=== PATIENT | male | born 1965 | race Caucasian/White ===

== ENCOUNTER 2016-11-01 12:45 | Day surgery (SDC) | payer MEDICARE, BC ==
[~2016-11-01 12:45] MED LIST: CENTTAB; CHOL4 PO; DIVA250ER PO; DIVA500 PO
[2016-11-01 13:05] VITALS: BP 144/83; PULSE 80; RESP 20; TEMP 97.7; O2SAT 96
--- NOTE | 2016-11-01 16:38 | RADRPT ---
EXAM DATE/TIME: 11/01/2016 00:00 [facility] COMPARISON : INDICATIONS : Consult for transarterial ablasion of liver mets OBJECTIVE: Temperature: 97.7 Heart Rate: 80 Blood Pressure: 144/83 Respiratory: 20 Oximetry: 96 PNEUMONIA VACCINE: NO HISTORY OF PRESENT ILLNESS: The patient is a 51-year-old with known colon cancer metastatic to the liver. The patient's solitary met in the left lobe of the liver has progressed from 3.5 cm to 4.5 cm over the last 6 months in spit e of maximal medical therapy. The patient presents for evaluation for treatment with radioactive micr ospheres. PAST MEDICAL HISTORY : 1. Carcinoma, colon. 2. Diabetes mellitus 2. 3. Seizures. 4. Alzheimer's. 5. Bipolar 6. Intellectual Disability 7. Acinetobacter PAST SURGICAL HISTORY : 1. Reversal colostomy 2. Colon Resection 3. Port Placement SOCIAL HISTORY : No alcohol use. No alcohol use. Tobacco;none. ALLERGIES: 1. Sulfa MEDICATIONS: 1. Metformin 500 mg q.d. 2. Abilify 10 mg q.d. 3. Depakote 500 mg q.d. 4. Divalproex ER 750 mg q.d. PHYSICAL EXAMINATION: Cardiovascular: Regular rate rhythm. Lungs: Clear to auscultation. Abdomen: Soft, nontender with a large scar from the patient's previous surgery. Pulses: Palpable dorsalis pedis and posterior tibial on the right. There is a palpable dorsalis pedis on the left with a faint post tibial. Groin pulses are symmetric and 2+ bilaterally. IMAGING STUDIES: The patient's CT imaging performed at [address] [place] [address] was reviewed. These confirmed enlarg ement of the patient's lesion in the left lobe of the liver. ASSESSMENT: 51-year-old with metastatic colon carcinoma to the liver. The patient is an excellent candidate for m icrosphere radioablation. The risks, benefits and potential competitions of the procedure were discussed in detail. The patient was briefly on radiation safety procedures post procedure. PLAN: The patient will be scheduled for preoperative mapping and nuclear evaluation. TIME SPENT: 30 minutes Pawan Shipley MD on November 01, 2016 at 16:33 Board Certified Radiologist. This report was verified electronically.
== END 2016-11-01 13:54 | disposition home or self-care (01) ==
LOC: HROP 12:45 → HRIP 12:48 → HROP 13:54
PROVIDERS: ATTEND Internal Medicine Hematology & Oncology
DX: C78.7 Secondary malignant neoplasm of liver and intrahepatic bile duct (principal); C18.9 Malignant neoplasm of colon, unspecified

== ENCOUNTER → 2017-01-20 | Outpatient (CLI) | payer MEDICARE, BC ==
[~2017-01-20] MED LIST changes: +DIVA250T3 PO; +DIVA500T PO; +METF500T PO; +METF850T PO; +MULT1TAB46; +ONDA1TAB16; +ONDA1TAB16 PO; +OXYC-392 PO; +QUES4POW2 PO; +XELO150T PO
--- NOTE | 2017-01-21 13:00 | RADRPT ---
EXAM DATE/TIME: 01/20/2017 14:02 [facility] COMPARISON : INDICATIONS : Colon cancer with metastic disease to liver. PNEUMONIA VACCINE: HISTORY OF PRESENT ILLNESS: The patient is a 52-year-old who has known metastatic colon cancer to the liver. The patient was init ially sent for evaluation to see if he is a candidate for ytrium embolization however, the patient santo d received intensive external beam radiation therapy to the liver and as such was not a candidate. We are reviewing the patient's records to see if he is a candidate for chemoembolization. PAST MEDICAL HISTORY : 1. Carcinomoa colon 2. Diabetes mellitus 2. 3. Seizures. 4. Alzheimer's. 5. Bipolar 6. Acinetobactor PAST SURGICAL HISTORY : 1. Revision colostomy 2. Colon resection 3. Port placement SOCIAL HISTORY : No alcohol use. ALLERGIES: 1. Sulfa MEDICATIONS: 1. Metformin 500 mg q.d. 2. Abilify 10 mg q.d. 3. Depakote 500 mg q.d. 4. Divalproex ER 750 mg q.d IMAGING STUDIES: The patient's outside CT imaging was reviewed. ASSESSMENT: I see no contraindication to chemoembolization. PLAN: Patient will be scheduled for chemoembolization of the liver. Pawan Shipley MD on January 21, 2017 at 12:56 Board Certified Radiologist. This report was verified electronically.
== END ==
LOC: HRAD 10:44
PROVIDERS: ATTEND Internal Medicine Hematology & Oncology
DX: C18.9 Malignant neoplasm of colon, unspecified (principal); C78.7 Secondary malignant neoplasm of liver and intrahepatic bile duct

== ENCOUNTER 2017-02-16 07:29 | Observation (INO) | payer MEDICARE, BC ==
[2017-02-16] VITALS (9 sets, daily range): BP systolic 134–151; BP diastolic 74–94; PULSE 65–82; RESP 16–20; TEMP 95.8–97.4; O2SAT 95–99
[~2017-02-16] VITALS: Ht 180.3 cm; Wt 113.6 kg
[~2017-02-16 07:29] MED LIST changes: -DIVA250T3 PO; -DIVA500T PO; -METF500T PO; -METF850T PO; -MULT1TAB46; -ONDA1TAB16; -ONDA1TAB16 PO; -OXYC-392 PO; -QUES4POW2 PO; -XELO150T PO
[2017-02-16] MEDS ORDERED: DIVA500T PO (09:20)
[2017-02-16] MEDS ORDERED: XELO150T PO (09:20)
[2017-02-16] MEDS ORDERED: QUES4POW2 PO (09:20)
[2017-02-16] MEDS ORDERED: MULT1TAB46 (09:20)
[2017-02-16] MEDS ORDERED: DIVA250T3 PO (09:20)
[2017-02-16] MEDS ORDERED: ONDA1TAB16 (09:20)
[2017-02-16] MEDS ORDERED: METF850T PO (09:20)
[2017-02-16] MEDS ORDERED: METF500T PO (09:20)
[2017-02-16] MEDS ORDERED: SODIUM CHLOR 0.9% 1000 ML INJ 1,000 ML IV SCH (09:30)
[2017-02-16] MEDS ORDERED: SODIUM CHLORIDE 0.9% FLUSH 10 ML FLUSH IV FLUSH PRN ×2 (09:30→14:15)
[2017-02-16 14:13] LABS: PROTHROMBIN TIME - PATIENT 11.3 SEC (9.8-11.6)
[2017-02-16] MEDS ORDERED: NALOXONE HCL 0.4 MG/ML AMP IV PRN (14:15)
[2017-02-16] MEDS ORDERED: ACETAMINOPHEN 325 MG TAB PO PRN ×2 (14:15)
--- NOTE | 2017-02-16 14:16 | HHI.HP ---
[facility] Humberto Ryan MD Admission Diagnosis Diagnoses: Chief Complaint: Elective procedure Travel History International Travel<30 Days: No Contact w/Intl Traveler <30 Da: No Traveled to Known Affected Are: No History of Present Illness The patient is a 52-year-old male with a past medical history of colorectal adenocarcinoma with liver metastasis who is presenting to the hospital for elective chemoembolization per interventional radiology. The patient says he is being treated by his oncologist who he saw last week. He says that since the diagnosis of the cancer he has gone from 280 pounds to 250 pounds. He has gone through several cycles of chemoradiation and is currently on palliative chemotherapy. The patient denies any shortness of breath, fevers, constipation , diarrhea, pain on urination and denies any new rashes or skin lesions. He is living independently at this time and he denies any chronic pain. He was seen in the preprocedure room and was about to go for the embolization. He had no acute complaints. Discussed with nurse at the bedside. Review of Systems Except as stated in HPI: all other systems reviewed are Neg Past Family Social History Past Medical History Colorectal adenocarcinoma with liver mets DM Adjustment disorder Cutaneous candidiasis Past Surgical History Colostomy Allergies: Coded Allergies: Sulfa (Verified Allergy, Severe, RASH, 02/16/17) Uncoded Allergies: NYSTATIN TRIAM CINELONE CREAM (Adverse Reaction, Severe, BURNED SKIN BADLY , 06/17/13) Active Ordered Medications Current Medications Medications (Trade) Dose Ordered Sig/Denisha Route Start Time Stop Time Status Last Admin Doxorubicin HCl 50 mg 50 mg ONCE ONCE OTHER 02/16/17 15:00 02/16/17 15:01 (NS 1000 ml Inj) 1,000 ml @ 100 mls/hr Q10H IV 02/16/17 09:30 02/16/17 19:29 (Heparin Central Flush) 500 units UNSCH PRN IV FLUSH 02/16/17 09:30 (NS Flush) 5 ml UNSCH PRN IV FLUSH 02/16/17 09:30 (Heparin Central Flush) 250 units UNSCH PRN IV FLUSH 02/16/17 09:30 Family History Colon cancer Social History The patient does not smoke or drink. He lives by himself. Physical Exam Vital Signs Vital Signs Date Time Temp Pulse Resp B/P Pulse Ox O2 Delivery O2 Flow Rate FiO2 02/16/17 09:00 96 Room Air 02/16/17 07:57 97.4 76 20 135/85 96 Physical Exam GENERAL: This is a well-nourished, well-developed patient, in no apparent distress. SKIN: No rashes, ecchymoses or lesions. Cool and dry. HEAD: Atraumatic. Normocephalic. No temporal or scalp tenderness. EYES: Pupils equal round and reactive. Extraocular motions intact. No scleral icterus. No injection or drainage. ENT: Nose without bleeding, purulent drainage or septal hematoma. Throat without erythema, tonsillar hypertrophy or exudate. Uvula midline. Airway patent. NECK: Trachea midline. No JVD or lymphadenopathy. Supple, nontender, no meningeal signs. CARDIOVASCULAR: Regular rate and rhythm without murmurs, gallops, or rubs. RESPIRATORY: Clear to auscultation. Breath sounds equal bilaterally. No wheezes , rales, or rhonchi. GASTROINTESTINAL: Abdomen soft, non-tender, nondistended. No hepato-splenomegaly , or palpable masses. No guarding. MUSCULOSKELETAL: Extremities without clubbing, cyanosis, or edema. No joint tenderness, effusion, or edema noted. NEUROLOGICAL: Awake and alert. Cranial nerves II through XII intact. Motor and sensory grossly within normal limits. Five out of 5 muscle strength in all muscle groups. Normal speech. PSYCH: Mood and affect appropriate. Assessment and Plan Assessment and Plan Transarterial chemoembolization Recommended by his oncologist for progressive liver lesion. Interventional radiology planning to do procedure 02/16/17. The patient has no acute complaints at this time. - Continue with chemoembolization. - obtain CMP, CBC. Follow labs in AM. - Outpatient follow-up with oncology. - Pain control and antiemetics as needed. Colorectal carcinoma With liver metastasis. Currently receiving palliative chemotherapy. - Follow up with oncology as an outpatient. Diabetes On metformin as an outpatient. - Hold metformin and place on insulin sliding scale. - Diabetic diet following procedure. Mood disorder On Depakote. Mood stable at this time. - continue home meds. PPx: SCDs Discussed Condition With Pt, nurse. Toni Brice DO Feb 16, 2017 14:16
[2017-02-16] MEDS ORDERED: fentaNYL CITRATE 250 MCG/5 ML AMP ONE (14:36)
[2017-02-16] MEDS ORDERED: MIDAZOLAM HCL 5 MG/5 ML VIAL ONE (14:36)
[2017-02-16] MEDS ORDERED: DOXOrubicin HCL 10 MG/5 ML INJ OTHER ONE (15:00)
[2017-02-16] MEDS ORDERED: ceFAZolin 2 GM PREMIX 50 ML ONE (15:45)
--- NOTE | 2017-02-16 15:57 | PD.RAD ---
Post Procedure Progress Note Pre Procedure Diagnosis: (1) Colon cancer (2) Metastatic colon cancer to liver Post Procedure Diagnosis: (1) Metastatic colon cancer to liver (2) Colon cancer Procedure Date: Feb 16, 2017 Supervising Radiologist: Pawan hSipley Anesthesia: Local, Conscious Sedation Plan of Activity Patient to Unit: ROPU Patient Condition: Good Additional Comments: Patient post chemo embolization. The left hepatic and middle hepatic were embolized with DC beads Pt. tolerated the procedure well. Full dictated report to follow See PACS Report for procedural detail/treatment Pawan Shipley MD Feb 16, 2017 15:57
[2017-02-16] MEDS ORDERED: IODIXANOL 320 MG/ML 50 ML VIAL (for RAD SPEC) I-ARTERIAL ONE (16:09)
--- NOTE | 2017-02-16 17:01 | RADRPT ---
EXAM DATE/TIME: 02/16/2017 14:20 [facility] COMPARISON: ANGIOGRAM, HEPATIC ARTERY, February 16, 2017, 0:00. INDICATIONS : Patient with a history of metastatic colorectal cancer to the liver. MEDICAL HISTORY : Bipolar disorder Cutaneous candidiasis Episodic confusion Intellectual disability Previous radiation therapy Rectal cancer with liver metastasis in 2010 SURGICAL HISTORY : Diverting colostomy Port placement Colonoscopy ENCOUNTER: Initial ACUITY: > 1 year PAIN SCORE: 0/10 FLUORO TIME: 12.8 minutes IMAGE SERIES: 11 ACCESS SITE: Right Femoral artery SEDATION TIME: 60 minutes CONTRAST: 1.) 70 cc Visipaque (iodixanol) MEDICATION(S): 1.) 5 mg midazolam (Versed) IV 2.) 250 mcg fentanyl (Sublimaze) IV DEVICE(S): 1.) Right hepatic artery 100-300 LC beads 2.) Right common femoral artery 6FR Angio-Seal PROCEDURE : 1. Ultrasound-guided puncture of the access site. 2. Conscious sedation with continuous EKG and oximetry monitoring. 3. Angiography of the celiac axis 4. Selective angiography of the left hepatic, right hepatic and middle hepatic arteries. 5. Doxorubicin coated bead embolization. The risks, benefits and alternatives to the procedure were explained and verbal and written consent w as obtained. The site was prepped in sterile fashion. Full sterile technique was used, including ca p, mask, sterile gloves and gown and a large sterile sheet. Hand hygiene and 2% chlorhexidine and/or betadine/alcohol prep was utilized per protocol for cutaneous antisepsis. The skin and subcutaneous tissues were infiltrated with local anesthetic solution. With ultrasound and fluoroscopic guidance the right common femoral artery was punctured and a vascula r sheath was placed. A 4 British short catheter and 0.035 Glidewire were advanced into the abdominal aorta. The celiac axis was easily selected. The glide wire was advanced out into the right hepatic artery. The hook cathete r was exchanged for a 4 British glide catheter. Multiple angiographic runs of the liver were performed . Results: Evaluation of the angiographic runs demonstrated neovascularity involving the central portion of the liver with arterial feeders from both the right and left lobe. Primary flow was via the left hepatic and middle hepatic arteries. There was some degree of flow from the right hepatic circulation as well . A renegade hi flow catheter was advanced through the glide catheter. The middle hepatic artery was se lected. Approximately 1.5 cc of embolic beads were administered into the middle hepatic. The catheter was pulled back. The left hepatic was easily selected again, approximately 1.5 cc of doxorubicin coa linda beads were administered without difficulty. Completion angiography was performed. This demonstrated stasis of flow within the left hepatic and mi ddle hepatic arteries. There was a significant decrease in flow to the tumor bed itself. There is how ever some feeding from the right hepatic. The patient's right groin was closed with an Angio-Seal closure device. Conscious sedation was performed with the prescribed dosages and duration as above in the presence of an independent trained radiology nurse to assist in the monitoring of the patient. EKG and oximetry remained stable throughout the procedure. CONCLUSION: 1. Uncomplicated chemoembolization of the left hepatic and middle hepatic circulation with doxorubici n coated beads. The patient does have some flow to the tumor bed as well from a branch off the right hepatic. We will have the patient return in approximately 2 months for embolization of the right hepa tic circulation. 2. The patient tolerated the procedure well. There was no immediate post procedure complication. Pawan Shipley MD on February 16, 2017 at 16:50 Board Certified Radiologist. This report was verified electronically.
[2017-02-16] MEDS: INSULIN ASPART SUPPLEMENTAL SCALE SQ SCH ×2 (18:00→20:48)
[2017-02-16] MEDS: DOCUSATE SODIUM 50 MG/SENNA 8.6 MG TAB PO SCH (20:49)
[2017-02-16] MEDS: SODIUM CHLORIDE 0.9% FLUSH 10 ML FLUSH IV FLUSH SCH (20:50)
[2017-02-16] MEDS ORDERED: DIVALPROEX SODIUM E.R. 250 MG TAB PO SCH (21:00)
[2017-02-16] MEDS: ONDANSETRON HCL 4 MG/2 ML VIAL IVP PRN (21:54)
[2017-02-17] VITALS: BP 142/68; PULSE 82; RESP 18; TEMP 96; O2SAT 98
[2017-02-17 04:00] VITALS: BP 142/83; PULSE 88; RESP 18; TEMP 97.2; O2SAT 97
[2017-02-17 04:01] LABS: MEAN CELL VOLUME 104.4 FL (80.0-100.0); MEAN CORPUSCULAR HEMOGLOBIN 36.2 PG (27.0-34.0); MEAN CORPUSCULAR HGB CONC 34.7 % (32.0-36.0); PLATELET COUNT 175 TH/MM3 (150-450); RED CELL DISTRIBUTION WIDTH 15.6 % (11.6-17.2); REVIEW FLAG FINAL; WHITE BLOOD COUNT 6.9 TH/MM3 (4.0-11.0)
[2017-02-17 04:42] LABS: ALKALINE PHOSPHATASE 75 U/L (45-117); ALT (GPT) 33 U/L (12-78); ANION GAP 6 MEQ/L (5-15); AST (GOT) 52 U/L (15-37); BICARBONATE 31.7 MEQ/L (21.0-32.0); BLOOD UREA NITROGEN 5 MG/DL (7-18); CHLORIDE 100 MEQ/L (98-107); GLOMERULAR FILTRATION RATE 100 ML/MIN (>89); MAGNESIUM 2.4 MG/DL (1.5-2.5); SODIUM (NA) 138 MEQ/L (136-145); TOTAL BILIRUBIN ADULT 1.4 MG/DL (0.2-1.0)
[2017-02-17] MEDS: INSULIN ASPART SUPPLEMENTAL SCALE SQ SCH (06:56)
[2017-02-17 08:00] VITALS: BP 145/82; PULSE 82; RESP 20; TEMP 96.5; O2SAT 100
[2017-02-17] MEDS: DOCUSATE SODIUM 50 MG/SENNA 8.6 MG TAB PO SCH (08:26)
[2017-02-17] MEDS: SODIUM CHLORIDE 0.9% FLUSH 10 ML FLUSH IV FLUSH SCH (08:26)
[2017-02-17] MEDS ORDERED: CHOLESTYRAMINE 4 GM PACKET PO SCH (09:00)
[2017-02-17] MEDS ORDERED: DIVALPROEX DR 500 MG TABEC PO SCH (09:00)
[2017-02-17] MEDS: ONDANSETRON HCL 4 MG/2 ML VIAL IVP PRN ×2 (10:01→15:20)
[2017-02-17 12:00] VITALS: BP 120/69; PULSE 82; RESP 20; TEMP 97.5; O2SAT 95
[2017-02-17] MEDS ORDERED: ONDA1TAB16 PO (15:29)
[2017-02-17] MEDS ORDERED: OXYC-392 PO (15:29)
--- NOTE | 2017-02-17 15:30 | HHI.DCPOC ---
Discharge Care Plan Diagnosis: (1) Metastatic colon cancer to liver Goals to Promote Your Health * To prevent worsening of your condition and complications * To maintain your health at the optimal level Directions to Meet Your Goals Take your medications as prescribed Follow your dietary instruction Follow activity as directed Keep your appointments as scheduled Take your immunizations and boosters as scheduled If your symptoms worsen call your PCP, if no PCP go to Urgent Care Center or Emergency Room Smoking is Dangerous to Your Health. Avoid second hand smoke Call the 24-hour hour crisis hotline for domestic abuse at Toni Brice DO Feb 17, 2017 15:30
--- NOTE | 2017-02-17 15:37 | HHI.PR ---
Subjective Remarks The pt was dressed and waiting to go home. He had no acute complaints. He said his sister will be picking him up. He requested additional nausea and pain pills. Discussed with nursing at the bedside. Objective Vitals Vital Signs Date Time Temp Pulse Resp B/P Pulse Ox O2 Delivery O2 Flow Rate FiO2 02/17/17 12:00 97.5 82 20 120/69 95 02/17/17 08:00 96.5 82 20 145/82 100 02/17/17 04:00 97.2 88 18 142/83 97 02/17/17 00:00 96.0 82 18 142/68 98 02/16/17 20:00 96.4 76 18 138/74 97 02/16/17 20:00 96.2 82 18 142/94 97 02/16/17 18:19 95.8 70 18 151/83 99 02/16/17 17:45 73 16 146/94 97 02/16/17 17:15 75 18 139/79 97 02/16/17 16:45 65 16 138/83 97 02/16/17 16:30 74 16 134/83 97 02/16/17 16:15 73 18 136/75 97 02/16/17 16:00 97.3 76 18 149/91 95 I/O 02/16/17 02/16/17 02/16/17 02/17/17 02/17/17 02/17/17 07:00 15:00 23:00 07:00 15:00 23:00 Intake Total 480 ml Output Total 150 ml Balance -150 ml 480 ml Intake Oral 480 ml Output Urine Total 150 ml # Voids 2 Result Diagram: 02/17/17 0328 02/17/17 0328 Imaging Last Impressions Embolization, Transcatheter 02/16/17 0000 Signed Impressions: Service Date/Time: Thursday, February 16, 2017 14:20 - CONCLUSION: 1. Uncomplicated chemoembolization of the left hepatic and middle hepatic circulation with doxorubicin coated beads. The patient does have some flow to the tumor bed as well from a branch off the right hepatic. We will have the patient return in approximately 2 months for embolization of the right hepatic circulation. 2. The patient tolerated the procedure well. There was no immediate post procedure complication. Pawan Shipley MD Objective Remarks GENERAL: This is a well-nourished, well-developed patient, in no apparent distress. SKIN: No rashes, ecchymoses or lesions. Cool and dry. HEAD: Atraumatic. Normocephalic. No temporal or scalp tenderness. EYES: Pupils equal round and reactive. Extraocular motions intact. No scleral icterus. No injection or drainage. ENT: Nose without bleeding, purulent drainage or septal hematoma. Throat without erythema, tonsillar hypertrophy or exudate. Uvula midline. Airway patent. NECK: Trachea midline. No JVD or lymphadenopathy. Supple, nontender, no meningeal signs. CARDIOVASCULAR: Regular rate and rhythm without murmurs, gallops, or rubs. RESPIRATORY: Clear to auscultation. Breath sounds equal bilaterally. No wheezes , rales, or rhonchi. GASTROINTESTINAL: Abdomen soft, non-tender, nondistended. No hepato-splenomegaly , or palpable masses. No guarding. MUSCULOSKELETAL: Extremities without clubbing, cyanosis, or edema. No joint tenderness, effusion, or edema noted. Right groin procedure site is nontender and without hematoma. NEUROLOGICAL: Awake and alert. Cranial nerves II through XII intact. Motor and sensory grossly within normal limits. Five out of 5 muscle strength in all muscle groups. Normal speech. PSYCH: Mood and affect appropriate. Procedures Chemoembolization Medications and IVs Current Medications Medications (Trade) Dose Ordered Sig/Denisha Route Start Time Stop Time Status Last Admin (Heparin Central Flush) 500 units UNSCH PRN IV FLUSH 02/16/17 09:30 (NS Flush) 5 ml UNSCH PRN IV FLUSH 02/16/17 09:30 (Heparin Central Flush) 250 units UNSCH PRN IV FLUSH 02/16/17 09:30 (Questran 4 Gm Pkt) 4 gm DAILY PO 02/17/17 09:00 02/17/17 08:26 (Depakote Er) 750 mg HS PO 02/16/17 21:00 02/16/17 20:49 (Depakote Dr) 500 mg DAILY PO 02/17/17 09:00 02/17/17 08:26 (NS Flush) 2 ml UNSCH PRN IV FLUSH 02/16/17 14:15 (NS Flush) 2 ml BID IV FLUSH 02/16/17 21:00 02/17/17 08:26 (Tylenol) 650 mg Q4H PRN PO 02/16/17 14:15 (Zofran Inj) 4 mg Q6H PRN IVP 02/16/17 14:15 02/17/17 10:01 (Tylenol) 650 mg Q6H PRN PO 02/16/17 14:15 (Roxicodone) 10 mg Q4H PRN PO 02/16/17 14:15 (Roxicodone) 5 mg Q4H PRN PO 02/16/17 14:15 (Narcan Inj) 0.4 mg UNSCH PRN IV 02/16/17 14:15 (Leana-Colace) 1 tab BID PO 02/16/17 21:00 02/17/17 08:26 A/P Assessment and Plan Transarterial chemoembolization Recommended by his oncologist for progressive liver lesion. Interventional radiology performed the procedure 02/16/17: Uncomplicated chemoembolization of the left hepatic and middle hepatic circulation with doxorubicin coated beads; The patient does have some flow to the tumor bed as well from a branch off the right hepatic; We will have the patient return in approximately 2 months for embolization of the right hepatic circulation. - Outpatient follow-up with oncology. - Pain control and antiemetics as needed. Colorectal carcinoma With liver metastasis. Currently receiving palliative chemotherapy. - Follow up with oncology as an outpatient. Will need further chemoembolization in 2 months. Diabetes On metformin as an outpatient. - Hold metformin and place on insulin sliding scale. Resume home meds upon discharge. Mood disorder On Depakote. Mood stable at this time. - continue home meds. PPx: SCDs Discharge Planning D/c home Toni Brice DO Feb 17, 2017 15:37
== END 2017-02-17 16:35 | disposition home or self-care (01) ==
LOC: HROP 07:29 → HRIP 07:29 → HSDI 14:09 → HROP 14:09 → HOCB 18:00
PROVIDERS: ADMIT Hospitalist; ATTEND Hospitalist
DX: C78.7 Secondary malignant neoplasm of liver and intrahepatic bile duct (principal); C19 Malignant neoplasm of rectosigmoid junction; E11.9 Type 2 diabetes mellitus without complications; F39 Unspecified mood [affective] disorder; F31.9 Bipolar disorder, unspecified; Z93.3 Colostomy status; Z88.2 Allergy status to sulfonamides; Z88.8 Allergy status to other drugs, medicaments and biological substances; Z79.84 Long term (current) use of oral hypoglycemic drugs
CPT/HCPCS: 36247; 36248; 37243; 75726; 75774; 76937; 80053; 82948; 83735; 85027; 85610; 96420; 99152; 99153; C1760; C1769; C1884; C1887; C1894; G0269; G0378; J0690; J2250; J2405; J3010; J7030; J9000; Q9967

== ENCOUNTER 2017-02-23 14:09 | Day surgery (SDC) | payer MEDICARE, BC ==
[~2017-02-23 14:09] MED LIST changes: -CENTTAB; -CHOL4 PO; -DIVA500 PO; +DIVA500T PO; +METF850T PO; +MULT1TAB46; +ONDA1TAB16 PO; +OXYC-392 PO; +QUES4POW2 PO; +XELO150T PO
[2017-02-23 14:25] VITALS: BP 130/64; PULSE 88; RESP 20; TEMP 98.1; O2SAT 96
--- NOTE | 2017-02-23 15:37 | RADRPT ---
EXAM DATE/TIME: 02/23/2017 00:00 [facility] COMPARISON : INDICATIONS : F/U LIVER CHEMOEMBOLIZATION OBJECTIVE: Temperature: 98.1 Heart Rate: 88 Blood Pressure: 130/64 Respiratory: 19 Oximetry: 96 PNEUMONIA VACCINE: HISTORY OF PRESENT ILLNESS: The patient is a 52-year-old with a long history of colon cancer metastatic to the liver. The patient underwent chemoembolization 02/16/17. The left hepatic and middle hepatic branches to the tumor were embolized. There were some feeding vessels from the right hepatic noted at the time of the patient's angiogram as well. The patient presents for followup post procedure. PAST MEDICAL HISTORY : 1. MEMORY LOSS 2. [place] 3. COLON CANCER 4. ILEOSTOMY 5. LIVER CANCER 6. HEAD INJURY CHILD PAST SURGICAL HISTORY : 1. COLONRECTAL EXCISIONS 2. COLOSTOMY/REVERSAL SOCIAL HISTORY : Illicit drug use ALLERGIES: 1. Sulfa 2. NYSTATIN CREAM 3. CINELONE CREAM MEDICATIONS: 1. DEPAKOTE 250 mg q.h.s. 2. DIVALPROEX 500 mg q.d. 3. METFORMIN 850 mg t.i.d. 4. XELODA 150 mg b.i.d. 5. QUESTRAN 40 mg q.d. 6. MVI 1 units q.d. ZOFRAN 4 mg prn OXYCODONE 5 mg prn PHYSICAL EXAMINATION: No physical examination was performed. ASSESSMENT: The patient has done well post-chemoembolization. He still states he has some mild fatigue which is t o be expected. He has no pain in the right groin. He states the groin puncture has healed. PLAN: The patient will followup with his oncologist. He will return in 3-6 months for potential embolizatio n of the feeding vessels from the right hepatic artery as well. TIME SPENT: 10 minutes. Pawan Shipley MD on February 23, 2017 at 15:30 Board Certified Radiologist. This report was verified electronically.
== END 2017-02-23 14:50 | disposition home or self-care (01) ==
LOC: HROP 14:09 → HRIP 14:12 → HROP 14:50
PROVIDERS: ATTEND Radiology Body Imaging
DX: Z85.038 Personal history of other malignant neoplasm of large intestine (principal)

== ENCOUNTER 2017-11-02 14:53 | Emergency (ER) | payer MEDICARE, BC ==
[~2017-11-02 14:53] MED LIST changes: -ONDA1TAB16 PO; +ONDA4TAB15 PO
[2017-11-02 15:03] VITALS: BP 132/60; PULSE 88; RESP 15; TEMP 97.9; O2SAT 99
[2017-11-02] MEDS ORDERED: DIPH2.5T14 PO (15:38)
[2017-11-02 16:00] VITALS: BP 126/66; PULSE 86; RESP 16; O2SAT 98
[2017-11-02] MEDS ORDERED: SODIUM CHLORID 0.9% 500 ML INJ 500 ML IV ONE (16:00)
[2017-11-02] MEDS ORDERED: SODIUM CHLORIDE 0.9% FLUSH 10 ML FLUSH IV FLUSH PRN (16:00)
--- NOTE | 2017-11-02 16:02 | PD ---
HPI Chief Complaint: GI Complaint Time Seen by Provider: 15:37 Travel History International Travel<30 days: No Contact w/Intl Traveler<30days: No Traveled to known affect area: No History of Present Illness HPI Patient is a 52-year-old male presents emergency department for evaluation of diarrhea for the past few months. Patient has a history of metastatic colon cancer status post colon resection. He does have a learning disability. He is followed by Dr. Guerrero in our hematology oncology clinic. He states that the only thing is changed today is that he is tired of having diarrhea. Review of the records shows the patient has been worked up for diarrhea in the past as far back as 2010. Patient denies any blood in the stool weakness nausea or vomiting. He does have a history of a mild learning disability. States symptoms for the past few months, constant, context and associated signs and symptoms as above PFSH Past Medical History Autoimmune Disease: No Anxiety: Yes Cancer: Yes (COLON CA, LIVER CA ) Cardiovascular Problems: No Chemotherapy: Yes (2 WEEKS AGO ) Diabetes: No Diminished Hearing: Yes ([place]) Endocrine: No Gastrointestinal Disorders: Yes (CURRENT CANCER REPAIR) GERD: No Genitourinary: No Hepatitis: No Hiatal Hernia: No Immune Disorder: No Implanted Vascular Access Dvce: Yes Musculoskeletal: No Neurologic: Yes (MEMORY LOSS) Psychiatric: No Reproductive: No Respiratory: No Immunizations Current: Yes (HEPATITIS VACC) Radiation Therapy: No Thyroid Disease: No Ulcer: No Past Surgical History Abdominal Surgery: Yes (COLORECT EXCISION, COLOSTOMY/ COLOS. REVERSAL/ILEOSTOMY ) AICD: No Arteriovenous Shunt: No Cardiac Surgery: No Ear Surgery: No Endocrine Surgery: No Eye Surgery: No Genitourinary Surgery: No Insulin Pump: No Joint Replacement: No Oral Surgery: No Pacemaker: No Thoracic Surgery: No Social History Alcohol Use: No Tobacco Use: No Substance Use: Yes Allergies-Medications (Allergen,Severity, Reaction): Coded Allergies: Sulfa (Sulfonamide Antibiotics) (Unverified Allergy, Severe, RASH, 11/02/17 ) Uncoded Allergies: NYSTATIN TRIAM CINELONE CREAM (Adverse Reaction, Severe, BURNED SKIN BADLY , 06/17/13) Reported Meds & Prescriptions Reported Meds & Active Scripts Active Ondansetron (Ondansetron HCl) 4 Mg Tab 4 Mg PO Q4-6H PRN Reported Diphenoxylate-Atropine 2.5-0.025 Mg Tab 1 Tab PO Q6H PRN Questran (Cholestyramine) 4 Gm/Dose Powd 4 Gm PO DAILY 1 level scoopful of powder contains 4 grams of cholestyramine. Xeloda (Capecitabine) 150 Mg Tab 150 Mg PO BID Cytotoxic agent. Swallow whole with water 30 minutes after a meal. Do not cut or crush. Metformin (Metformin HCl) 850 Mg Tab 850 Mg PO DAILY With a meal Divalproex DR (Divalproex Sodium) 500 Mg Tabdr 500 Mg PO DAILY Review of Systems Except as stated in HPI: all other systems reviewed are Neg Physical Exam Narrative GENERAL: Well-developed, well-nourished, no obvious distress per SKIN: Focused skin assessment warm/dry. HEAD: Atraumatic. Normocephalic. EYES: Pupils equal and round. No scleral icterus. No injection or drainage. ENT: No nasal bleeding or discharge. Mucous membranes pink and moist. NECK: Trachea midline. No JVD. CARDIOVASCULAR: Regular rate and rhythm. No murmur appreciated. RESPIRATORY: No accessory muscle use. Clear to auscultation. Breath sounds equal bilaterally. GASTROINTESTINAL: Abdomen soft, non-tender, nondistended. Hepatic and splenic margins not palpable. Well-healed surgical scars, no abdominal pain. Abdomen is fully benign MUSCULOSKELETAL: No obvious deformities. No clubbing. No cyanosis. No edema. NEUROLOGICAL: Awake and alert. No obvious cranial nerve deficits. Motor grossly within normal limits. Normal speech. PSYCHIATRIC: Appropriate mood and affect; insight and judgment normal. Data Data Last Documented VS Vital Signs Date Time Temp Pulse Resp B/P (MAP) Pulse Ox O2 Delivery O2 Flow Rate FiO2 11/02/17 19:14 72 22 110/50 (70) 96 11/02/17 16:00 Room Air 11/02/17 15:03 97.9 Orders Orders Complete Blood Count With Diff (11/02/17 15:48) Comprehensive Metabolic Panel (11/02/17 15:48) Iv Access Insert/Monitor (11/02/17 15:48) Ecg Monitoring (11/02/17 15:48) Oximetry (11/02/17 15:48) Sodium Chloride 0.9% Flush (Ns Flush) (11/02/17 16:00) Sodium Chlorid 0.9% 500 Ml Inj (Ns 500 M (2/28/18 16:00) Ed Discharge Order (11/02/17 18:28) Labs Laboratory Tests Test 11/02/17 15:15 White Blood Count 6.2 TH/MM3 Red Blood Count 4.27 MIL/MM3 Hemoglobin 13.9 GM/DL Hematocrit 41.3 % Mean Corpuscular Volume 96.8 FL Mean Corpuscular Hemoglobin 32.6 PG Mean Corpuscular Hemoglobin Concent 33.7 % Red Cell Distribution Width 16.5 % Platelet Count 214 TH/MM3 Mean Platelet Volume 7.6 FL Neutrophils (%) (Auto) 71.1 % Lymphocytes (%) (Auto) 15.1 % Monocytes (%) (Auto) 10.6 % Eosinophils (%) (Auto) 2.5 % Basophils (%) (Auto) 0.7 % Neutrophils # (Auto) 4.4 TH/MM3 Lymphocytes # (Auto) 0.9 TH/MM3 Monocytes # (Auto) 0.7 TH/MM3 Eosinophils # (Auto) 0.2 TH/MM3 Basophils # (Auto) 0.0 TH/MM3 CBC Comment DIFF FINAL Differential Comment Blood Urea Nitrogen 11 MG/DL Creatinine 0.79 MG/DL Random Glucose 131 MG/DL Total Protein 7.4 GM/DL Albumin 3.6 GM/DL Calcium Level 8.9 MG/DL Alkaline Phosphatase 100 U/L Aspartate Amino Transf (AST/SGOT) 25 U/L Alanine Aminotransferase (ALT/SGPT) 34 U/L Total Bilirubin 0.3 MG/DL Sodium Level 140 MEQ/L Potassium Level 3.7 MEQ/L Chloride Level 105 MEQ/L Carbon Dioxide Level 29.2 MEQ/L Anion Gap 6 MEQ/L Estimat Glomerular Filtration Rate 103 ML/MIN [facility] Medical Decision Making Medical Screen Exam Complete: Yes Emergency Medical Condition: Yes Differential Diagnosis Chronic diarrhea, gastritis, gastroenteritis, C. difficile colitis, short gut syndrome Narrative Course Patient is a 52-year-old male with a history of chronic diarrhea for the past few months presents emergency department feeling dehydrated. His case was discussed with Dr. Tesfaye mostly because the patient has packed a bag and feels like he needs to be admitted Dr. she was unaware of any patient with Dr. Guerrero' s that was due for admission., electrolyte within normal limits, he has not had a bowel movement while in the emergency department. I think his symptoms are mostly consistent with chronic short gut syndrome and I do not see indication for admission at this time. He is stable for outpatient management and further workup. This was discussed with the patient he verbalized understanding and agreement. He is stable for discharge. Patient states he is driving himself home now. Diagnosis Primary Impression: Diarrhea Qualified Codes: A09 - Infectious gastroenteritis and colitis, unspecified Referrals: Amanuel Guerrero MD Disposition: 01 DISCHARGE HOME Condition: Stable Los Akhtar MD Nov 02, 2017 16:02
[2017-11-02 16:52] LABS: AUTOMATED NEUTROPHIL # 4.4 TH/MM3 (1.8-7.7); BASOPHIL % 0.7 % (0.0-2.0); EOSINOPHIL # 0.2 TH/MM3 (0-0.4); EOSINOPHIL % 2.5 % (0.0-4.0); HEMATOCRIT 41.3 % (39.0-51.0); HEMOGLOBIN 13.9 GM/DL (13.0-17.0); LYMPH % 15.1 % (9.0-44.0); LYMPHOCYTE # 0.9 TH/MM3 (1.0-4.8); MEAN CELL VOLUME 96.8 FL (80.0-100.0); MEAN CORPUSCULAR HEMOGLOBIN 32.6 PG (27.0-34.0); MEAN CORPUSCULAR HGB CONC 33.7 % (32.0-36.0); MEAN PLATELET VOLUME 7.6 FL (7.0-11.0); MONO % 10.6 % (0.0-8.0); MONOCYTE # 0.7 TH/MM3 (0-0.9); NEUT % 71.1 % (16.0-70.0); PLATELET COUNT 214 TH/MM3 (150-450); RED BLOOD COUNT 4.27 MIL/MM3 (4.50-5.90); RED CELL DISTRIBUTION WIDTH 16.5 % (11.6-17.2); WHITE BLOOD COUNT 6.2 TH/MM3 (4.0-11.0)
[2017-11-02 17:06] LABS: ALBUMIN 3.6 GM/DL (3.4-5.0); ALT (GPT) 34 U/L (12-78); AST (GOT) 25 U/L (15-37); BICARBONATE 29.2 MEQ/L (21.0-32.0); BLOOD UREA NITROGEN 11 MG/DL (7-18); CALCIUM 8.9 MG/DL (8.5-10.1); CHLORIDE 105 MEQ/L (98-107); CREATININE 0.79 MG/DL (0.60-1.30); GLOMERULAR FILTRATION RATE 103 ML/MIN (>89); GLUCOSE,RANDOM 131 MG/DL (74-106); SODIUM (NA) 140 MEQ/L (136-145)
[2017-11-02 17:09] LABS: ALKALINE PHOSPHATASE 100 U/L (45-117); TOTAL BILIRUBIN ADULT 0.3 MG/DL (0.2-1.0); TOTAL PROTEIN 7.4 GM/DL (6.4-8.2)
[2017-11-02 19:14] VITALS: BP 110/50
== END 2017-11-02 19:15 | disposition home or self-care (01) ==
LOC: NEPC 14:53
DX: A09 Infectious gastroenteritis and colitis, unspecified (principal); Z85.038 Personal history of other malignant neoplasm of large intestine; Z85.05 Personal history of malignant neoplasm of liver; Z88.2 Allergy status to sulfonamides
CPT/HCPCS: 80053; 85025; 99283; J7040